=== PATIENT | male | born 1985 | race Caucasian/White ===

== ENCOUNTER 2017-11-08 13:00 | Emergency (ER) | payer OTHER, SELFPAY ==
--- NOTE | 2017-11-08 13:00 | DT_ITS ---
This patient was seen during an EMR downtime November 08, 2017 - November 15, 2017. This patient may have a combination of paper and electronic documentation or all paper documentation. All documentation is viewable within the e-chart portion of [facility] for each patient visit.
== END 2017-11-08 13:45 | disposition home or self-care (01) ==
LOC: ED 11-10 13:13
PROVIDERS: Emergency Provider Emergency Medicine
DX: T15.82XA Foreign body in other and multiple parts of external eye, left eye, initial encounter (principal); W89.0XXA Exposure to welding light (arc), initial encounter; Y93.89 Activity, other specified; Y99.0 Civilian activity done for income or pay; Z72.0 Tobacco use
CPT/HCPCS: 99282